=== PATIENT | male | born 1955 | race Asian ===

== ENCOUNTER 2019-05-03 10:56 | Outpatient (CLI) | payer MEDICARE ==
[2019-05-03 12:53] LABS: Hematocrit 44.1 % (35.5-45.6); Hemoglobin 14.9 gm/dl (11.8-15.2); Mean Corpuscular HGB Conc 34 % (32-34); Mean Corpuscular Volume 87 fl (84-94); Platelet Count 286 K/mm3 (140-440); Red Blood Count 5.04 M/mm3 (3.65-5.03); Red Cell Distribution Width 13.6 % (13.2-15.2)
[2019-05-03 13:18] LABS: Chol/HDL Ratio 3.36 %
[2019-05-07 12:21] LABS: Vitamin D, 25-OH, D2 <4 ng/mL
== END 2019-05-03 10:57 | disposition home or self-care (01) ==
LOC: LAB 10:56
PROVIDERS: ATTEND Internal Medicine
DX: Z13.220 Encounter for screening for lipoid disorders (principal); Z13.1 Encounter for screening for diabetes mellitus; R79.89 Other specified abnormal findings of blood chemistry
CPT/HCPCS: 36415; 80061; 82306; 82607; 83036; 84443; 85027

== ENCOUNTER 2022-06-07 11:26 | Outpatient (CLI) | payer MEDICARE ==
[2022-06-07 12:31] LABS: Basophils # (Auto) 0.1 K/mm3 (0.0-0.1); Basophils % (Auto) 0.9 % (0.0-1.8); Eosinophils # (Auto) 0.3 K/mm3 (0.0-0.4); Eosinophils % (Auto) 3.3 % (0.0-4.3); Hematocrit 43.8 % (35.5-45.6); Hemoglobin 14.7 gm/dl (11.8-15.2); Lymphocytes # (Auto) 1.8 K/mm3 (1.2-5.4); Mean Corpuscular HGB Conc 34 % (32-34); Mean Corpuscular Volume 87 fl (84-94); Monocytes # (Auto) 0.6 K/mm3 (0.0-0.8); Monocytes % (Auto) 7.4 % (0.0-7.3); Platelet Count 300 K/mm3 (140-440); Red Blood Count 5.02 M/mm3 (3.65-5.03); Red Cell Distribution Width 13.2 % (13.2-15.2)
[2022-06-07 12:50] LABS: Alanine Aminotransferase 27 units/L (7-56); Albumin 5.1 g/dL (3.9-5); Blood Urea Nitrogen 16 mg/dL (9-20); Chol/HDL Ratio 3.18 %; HDL Cholesterol 66 mg/dL (40-59); Hemolysis Index 6; LDL Cholesterol,Direct 129 mg/dL (50-130)
[2022-06-07 12:58] LABS: BUN/Creatinine Ratio 23
== END 2022-06-07 11:27 | disposition home or self-care (01) ==
LOC: LABHHL 11:26
PROVIDERS: ATTEND Internal Medicine
DX: I10 Essential (primary) hypertension (principal); E55.9 Vitamin D deficiency, unspecified; E78.5 Hyperlipidemia, unspecified; R53.83 Other fatigue; Z00.00 Encounter for general adult medical examination without abnormal findings
CPT/HCPCS: 36415; 80053; 80061; 82306; 84443; 85025